=== PATIENT | male | born 1960 | race Caucasian/White ===

== ENCOUNTER → 2017-08-10 | Outpatient (CLI) | payer OTHER ==
[~2017-08-10] MED LIST: CEPH500 PO; DICL250 PO; HYDACE5 PO; IBUP600; SULTRIDS PO
== END ==
LOC: LAB 16:22
DX: E11.65 Type 2 diabetes mellitus with hyperglycemia (principal)
CPT/HCPCS: 83036

== ENCOUNTER → 2020-08-31 | Outpatient (CLI) | payer OTHER ==
[2020-08-31 18:14] LABS: BASOPHILS ABSOLUTE AUTO 0.03 K/mm3 (0.00-0.23); BASOPHILS PERCENT AUTO 1 % (0-2); EOSINOPHILS ABSOLUTE AUTO 0.02 K/mm3 (0.00-0.68); EOSINOPHILS PERCENT AUTO 0 % (0-6); Hematocrit 44.3 % (37.0-53.0); IMMATURE GRAN ABSOLUTE AUTO 0.02 K/mm3 (0.00-0.10); IMMATURE GRAN PERCENT AUTO 0 % (0-1); LYMPHOCYTES ABSOLUTE AUTO 1.59 K/mm3 (0.84-5.20); LYMPHOCYTES PERCENT AUTO 25 % (21-46); MONOCYTES ABSOLUTE AUTO 0.45 K/mm3 (0.16-1.47); MONOCYTES PERCENT AUTO 7 % (4-13); Mean Corpuscular HGB 30.1 pg (26.0-34.0); Mean Corpuscular HGB Conc 33.9 g/dL (31.5-36.5); Mean Corpuscular Volume 89 fL (80-100); Mean Platelet Volume 10.3 fL (9.1-12.4); NEUTROPHILS ABSOLUTE AUTO 4.18 K/mm3 (1.96-9.15); NEUTROPHILS PERCENT AUTO 66 % (41-73); Platelet Count 210 K/mm3 (150-400); RDW Coefficient Variation 12.4 % (11.7-14.2); RDW Standard Deviation 40.2 fL (35.1-46.3); Red Blood Cell Count 4.99 M/mm3 (4.30-5.90); White Blood Cell Count 6.29 K/mm3 (4.00-11.30)
[2020-08-31 18:27] LABS: Alanine Aminotransfer (ALT/SGP 34 U/L (12-78); Albumin, Blood 3.9 g/dL (3.4-5.0); Albumin/Globulin Ratio 1.1 (0.8-1.8); Alk Phos 77 U/L (40-126); Anion Gap 13 mmol/L (6-16); Aspartate Aminotrans (AST/SGOT 11 U/L (12-37); Bilirubin, Total 0.4 mg/dL (0.1-1.0); Blood Urea Nitrogen 21 mg/dL (8-24); Bun/Creatinine Ratio 18.8 (12.0-20.0); CO2, Blood 24 mmol/L (21-32); Chloride, Blood 99 mmol/L (98-108); Creatinine, Blood 1.12 mg/dL (0.60-1.20); Globulin, Blood 3.7 g/dL (2.2-4.0); Glomerular Filtration Rate >60 (60-); Glucose, Blood 387 mg/dL (70-99); Sodium, Blood 136 mmol/L (136-145); Total Protein, Blood 7.6 g/dL (6.4-8.2)
== END | disposition home or self-care (01) ==
LOC: LAB EV 18:11 → LAB SHORT 18:11
PROVIDERS: Physician Assistant Medical
DX: E11.65 Type 2 diabetes mellitus with hyperglycemia (principal); I10 Essential (primary) hypertension
CPT/HCPCS: 80053; 83036; 85025

== ENCOUNTER 2024-02-05 10:49 | Day surgery (SDC) | payer BC ==
[~2024-02-05] VITALS: Ht 180.3 cm; Wt 124.4 kg
[~2024-02-05 10:49] MED LIST changes: +AMLO10; +BASAGLAR K100 UNIT/1; +ELIQUIS5 M2; +EZALLOR SPRINKLE5 MG; +HYDCHL25; +HYDCHL25 PO; +LISI20; +Lactated Ringer's 1,000 ML IV ONE; +METF500; +METO25ER; +OXYM.05NI; +OZEMPIC1 MG/0.72 SQ; +TOPI50; +Toprol Xl25 MG PO
[2024-02-05] MEDS ORDERED: CeFAZolin Sodium 2,000 MG VIAL ONE (10:55)
[2024-02-05] MEDS ORDERED: NS 50 ML IV ONE (10:55)
[2024-02-05] MEDS ORDERED: EZALLOR SPRINKLE5 MG PO (11:10)
[2024-02-05] MEDS ORDERED: CeFAZolin Sodium 3,000 MG in NS 100 ML IV SCH (11:10)
[2024-02-05] MEDS ORDERED: GABA300 PO (11:11)
[2024-02-05] MEDS ORDERED: INSULANPEN SC (11:11)
[2024-02-05] MEDS ORDERED: NOVOLIN R100 UNIT/2 SQ (11:11)
[2024-02-05] MEDS ORDERED: Lactated Ringer's 1,000 ML IV ONE (11:25)
--- NOTE | 2024-02-05 11:26 | NUR ---
02/05/24 [id number] Mari Rios TIME OUT DONE PRIOR TO INJECTION OF LOCAL BY DR JARVIS AT 1120. 8ML LOCAL INJECTED.
[2024-02-05] MEDS ORDERED: propofoL 20 ML IV ONE ×2 (11:29→11:35)
[2024-02-05 11:54] VITALS: BP 146/90
--- NOTE | 2024-02-05 12:15 | NUR ---
02/05/24 1215 Mari Rios IV, DC'D WNL, 800ML IN BAG
== END 2024-02-05 12:14 | disposition home or self-care (01) ==
LOC: ORSCSDS 10:49
PROVIDERS: Orthopaedic Surgery
PROC: 01N54ZZ Release Median Nerve, Percutaneous Endoscopic Approach (ICD-10-PCS; principal; 2024-02-05 12:15)
DX: G56.02 Carpal tunnel syndrome, left upper limb (principal); E11.9 Type 2 diabetes mellitus without complications; I10 Essential (primary) hypertension; Z79.899 Other long term (current) drug therapy
CPT/HCPCS: 82947; J0690; J2704; J7120